=== PATIENT | male | born 1985 | race Caucasian/White ===

== ENCOUNTER → 2021-05-30 02:05 | Outpatient (CLI) | payer OTHER, SELFPAY ==
[2021-05-30 12:48] LABS: SARS-CoV-2 RNA PCR Negative
== END ==
PROVIDERS: Visit Provider Urology
DX: Z20.822 Contact with and (suspected) exposure to COVID-19 (principal)
CPT/HCPCS: C9803; U0003; U0005

== ENCOUNTER 2021-06-01 02:40 | Day surgery (SDC) | payer OTHER, SELFPAY ==
[2021-05-25 10:41] VITALS: BMI 33.7
--- NOTE | 2021-05-25 10:47 | PC.NURSE ---
Report to the Outpatient Waiting Room, entrance under the green pavilion located off [facility], at time 0600 on date 06/01/21. OR Time: 0730. - You will be asked a series of questions to screen for COVID 19 for your protection. - A mask is required within the hospital. - No visitors are allowed at this time. Preoperative COVID Testing Requirements: COVID TEST 05/29 AT 0900 No COVID Test needed if: (proof is required; if not received patient will have Rapid Test prior to entry) - Patient has received COVID Vaccine at least 14 days prior to procedure date or - Patient has positive COVID test result within last 90 days of surgery date. COVID Test needed if above criteria is not met If not COVID vaccinated a COVID test must be conducted within 72 hours of surgery and patient is asked to isolate self from time of testing until procedure. You will go to the [facility] for your COVID testing. The [facility] is located at the corner of [address] [facility]. You will only be called if COVID results are positive and your surgeon may reschedule your elective surgery date. Patients may have clear liquids (water, carbonated beverages, clear teas, apple juice) until 3 hours prior to surgery with a maximum of 20 ounces. - No food from midnight until time of surgery Take the following medications with a SIP of water the morning of surgery: NONE Medications to discontinue per physician: VITAMINS/SUPPLEMENTS Date to take last dose: 05/28/21 Please no make-up, nail latvian, hairspray, perfume, deodorant, or body powder the day of surgery. No jewelry (including any body piercings) or valuables the day of surgery, leave them at home. Please take a shower or bath the night before, or the morning of, surgery with an antibacterial soap. Wear comfortable, loose fitting clothing. - Jewelry must be removed prior to entering the operating room. Rings and piercings that are not removed may be cut off. - The hospital will not accept responsibility for valuables. - Please leave all valuables, including medications, at home the day of surgery. If you are going home after surgery, a licensed emergency detail driver must drive you home. - NO public transportation without another adult. - We recommend that an adult stay with you for 24 hours following discharge. - We also recommend that you do not drive, make important decision, drink alcoholic beverages, or take any drugs that were not prescribed by your health care provider for at least 24 hours after your discharge time. Follow any additional instructions given to you from your surgeon. Telephone instructions given to GLORIA ALLEN and asked if any additional questions and then verbalized understanding. Patient advised to call surgeon office or pre surgery nurse liaison [phone] if any additional questions.
--- NOTE | 2021-05-31 14:25 | WPDANESEPP ---
Anes - Eval Pre Procedure Procedure: Operation Date: 06/01/21 07:30 Proposed Procedures p Bilateral Vasectomy Smita Jones MD Date/Time: 05/31/21 14:25 Pre Op Diagnosis: desires sterilization Patient Data Age: 36 Gender: M Height: 1.91 m Weight: 122.47 kg Allergies Allergy/AdvReac Type Severity Reaction Status Date / Time No Known Allergies Allergy Verified 05/25/21 10:40 Home Medications Medication Instructions Recorded Confirmed Type No Home Medications 05/25/21 05/25/21 History Patient hx anesthesia problems: none Family hx anesthesia problems: none Results Review: All pre-operative results and documents have been reviewed as part of the pre-operative evaluation. PMFSH Past Medical History Medical History (Updated 05/31/21 @ 14:26 by Colette Knowles CRNA) Obesity Surgical History Surgical History (Updated 05/31/21 @ 14:26 by Colette Knowles CRNA) H/O arthroscopic knee surgery Social History Social History Smoking status: Never smoker Alcohol intake: current Drinks per week: 18 Substance use: never Substance use type: does not use Spiritual care concerns: No Exam Day of Procedure 05/31/21 14:25
[2021-06-01] VITALS (8 sets, daily range): BP systolic 131–155; BP diastolic 84–105; PULSE 75–87; RESP 12–20; TEMP 36.1–36.8; O2SAT 93–100
[2021-06-01] MEDS: LACTATED RINGERS 1,000 ML 30 ML IV CONT ×2 (06:50→08:18)
--- NOTE | 2021-06-01 07:33 | PM.IMHP ---
H&P: HPI History of Present Illness Date/Time: 06/01/21 07:33 36 year old male who presents for vasectomy. difficult exam in office. Chief Complaint: fertility Review of Systems Review of Systems: All systems reviewed & are unremarkable except as noted in HPI and below PMFSH Past Medical History Medical History Obesity Surgical History Surgical History H/O arthroscopic knee surgery Social History Social History Smoking status: Never smoker Alcohol intake: current Drinks per week: 18 Substance use: never Substance use type: does not use Living arrangements: with family Spiritual care concerns: No Meds Home Medications and Allergies Home Medications Medication Instructions Recorded Confirmed Type No Home Medications 05/25/21 06/01/21 History Allergies Allergy/AdvReac Type Severity Reaction Status Date / Time No Known Allergies Allergy Verified 06/01/21 06:49 Exam Const: General: cooperative and comfortable HENMT: Head: normal to inspection Eyes: General: appearance normal, both eyes and all related structures Chest: Chest palpation & inspection: normal inspection of the chest Resp: Effort & Inspection: normal respiratory effort Cardio: Rate: regular rate Rhythm: regular rhythm Assessment and Plan Assessment and plan (1) Unwanted fertility: Code(s): Z30.09 - Encounter for other general counseling and advice on contraception Status: Acute Assessment and Plan: Proceed with vasectomy , possible scrotal exploration
--- NOTE | 2021-06-01 07:38 | WPDHPUPDATE1 ---
History and Physical Update Update Date/Time: 06/01/21 07:38 History and Physical has been reviewed, including an updated exam of the patient. There are NO changes in the patient's condition. Risks, benefits, and alternatives have been discussed and questions answered. Patient agrees to proceed with procedure.
[2021-06-01] MEDS: ceFAZolin 2 GM/D5W 50 ML 2 GM/50 ML BAG IVPB (07:42)
[2021-06-01] MEDS: BACITRACIN OINTMENT 15 GM TUBE 1 APPLIC TOPICAL (07:43)
--- NOTE | 2021-06-01 08:14 | W.PM.PROC2 ---
Procedure Note - Detailed Date of Procedure 06/01/21 Pre-op Diagnosis desires sterilization Post-op Diagnosis same Procedure Performed Bilateral vasectomy Surgeon Andrews Jones MD Anesthesia general Description of Procedure Patient is taken the operative suite and correctly identified. Once anesthesia was obtained was prepped draped usual sterile fashion. The right vas was isolated in a transverse and incision was made in the midline in the scrotum. The vas was grasped with a vas clamp. A segment was excised with the ends fulgurated and ligated. These were buried. 1% lidocaine was used anesthetize the cord. Similar procedure was done on the left side. Skin was closed using 3-0 chromic in an interrupted fashion. We anesthetized the skin using 1% lidocaine. Patient is taken recovery stable condition. Estimated Blood Loss 0 Drains No Packing No Pathology yes Complications No immediate complications Condition stable Disposition PACU
== END 2021-06-01 10:10 | disposition home or self-care (01) ==
PROVIDERS: Visit Provider Urology
PROC: (CPT 55250; principal; 2021-06-01 07:30)
DX: Z30.2 Encounter for sterilization (principal); E66.9 Obesity, unspecified; Z68.33 Body mass index [BMI] 33.0-33.9, adult
CPT/HCPCS: 55250; 88300; A9270; J0690; J1100; J2250; J2405; J2704; J3010; J7120